=== PATIENT | female | born 1945 | race Caucasian/White ===

== ENCOUNTER → 2019-11-15 | Outpatient (REF) | payer MEDICARE, MEDICAID ==
[2019-11-15 13:15] LABS: HEMATOCRIT 44.6 % (36.0-47.0); HEMOGLOBIN 14.7 g/dl (12.0-15.5); MEAN CORPUSCULAR HEMOGLOBIN 31.4 pg (27.0-33.0); MEAN CORPUSCULAR VOLUME 95.3 fl (80.0-96.0); PLATELET COUNT, AUTOMATED 321 10^3/uL (150-450); RED BLOOD COUNT 4.68 10^6/uL (4.00-5.40); WHITE BLOOD COUNT 8.8 10^3/uL (4.0-10.0)
[2019-11-15 13:37] LABS: ALBUMIN 3.9 GM/DL (3.2-5.2); ALT/SGPT 22 U/L (12-78); BILIRUBIN,TOTAL 0.5 MG/DL (0.2-1.0); BLOOD UREA NITROGEN 13 MG/DL (7-18); CALCIUM LEVEL 9.1 MG/DL (8.8-10.2); CARBON DIOXIDE LEVEL 30 MEQ/L (21-32); CHLORIDE LEVEL 95 MEQ/L (98-107); CHOLESTEROL LEVEL 182 MG/DL (<200); CHOLESTEROL RISK RATIO 3.084 (<5); CREATININE FOR GFR 0.75 MG/DL (0.55-1.30); GLOMERULAR FILTRATION RATE > 60.0 (>39); GLUCOSE, FASTING 99 MG/DL (70-100); HDL CHOLESTEROL 59 MG/DL (>40); LDL CHOLESTEROL 102 MG/DL (<100); NON-HDL-C 123 MG/DL; POTASSIUM SERUM 4.4 MEQ/L (3.5-5.1); SODIUM LEVEL 130 MEQ/L (136-145); TOTAL PROTEIN 7.7 GM/DL (6.4-8.2); TRIGLYCERIDES LEVEL 105 MG/DL (<150)
== END ==
LOC: M LABDRWAD 12:47
PROVIDERS: ATTEND Family Medicine
DX: I10 Essential (primary) hypertension (principal)

== ENCOUNTER → 2021-01-08 | Outpatient (REF) | payer MEDICARE, MEDICAID ==
[2021-01-08 12:40] LABS: HEMATOCRIT 44.1 % (36.0-47.0); HEMOGLOBIN 14.4 g/dl (12.0-15.5); MEAN CORPUSCULAR HEMOGLOBIN 30.8 pg (27.0-33.0); MEAN CORPUSCULAR HGB CONC 32.7 g/dl (32.0-36.5); MEAN CORPUSCULAR VOLUME 94.4 fl (80.0-96.0); PLATELET COUNT, AUTOMATED 318 10^3/uL (150-450); RED BLOOD COUNT 4.67 10^6/uL (4.00-5.40); WHITE BLOOD COUNT 9.6 10^3/uL (4.0-10.0)
[2021-01-08 19:06] LABS: ALT/SGPT 17 U/L (12-78); BILIRUBIN,TOTAL 0.5 MG/DL (0.2-1.0); BLOOD UREA NITROGEN 14 MG/DL (7-18); CALCIUM LEVEL 9.4 MG/DL (8.8-10.2); CARBON DIOXIDE LEVEL 27 MEQ/L (21-32); CHLORIDE LEVEL 97 MEQ/L (98-107); CHOLESTEROL LEVEL 168 MG/DL (<200); CREATININE FOR GFR 0.79 MG/DL (0.55-1.30); FERRITIN 176 NG/ML (8-252); GLOMERULAR FILTRATION RATE > 60.0 (>39); GLUCOSE, FASTING 79 MG/DL (70-100); HDL CHOLESTEROL 56 MG/DL (>40); IRON (FE) 71 UG/DL (50-170); LDL CHOLESTEROL 82 MG/DL (<100); NON-HDL-C 112 MG/DL; PERCENT SATURATION 23.5 % (13.2-45.0); POTASSIUM SERUM 4.8 MEQ/L (3.5-5.1); SODIUM LEVEL 132 MEQ/L (136-145); TOTAL IRON BINDING CAPACITY 302 UG/DL (250-450); TOTAL PROTEIN 7.5 GM/DL (6.4-8.2); TRIGLYCERIDES LEVEL 149 MG/DL (<150)
== END ==
LOC: M LABDRWAD 12:10
PROVIDERS: ATTEND Family Medicine
DX: D64.9 Anemia, unspecified (principal); I10 Essential (primary) hypertension

== ENCOUNTER → 2022-01-14 | Outpatient (CLI) | payer MEDICARE, MEDICAID ==
[2022-01-14 12:43] LABS: HEMATOCRIT 44.3 % (36.0-47.0); HEMOGLOBIN 14.6 g/dl (12.0-15.5); MEAN CORPUSCULAR HEMOGLOBIN 31.2 pg (27.0-33.0); MEAN CORPUSCULAR VOLUME 94.7 fl (80.0-96.0); PLATELET COUNT, AUTOMATED 304 10^3/uL (150-450); RED BLOOD COUNT 4.68 10^6/uL (4.00-5.40); WHITE BLOOD COUNT 8.2 10^3/uL (4.0-10.0)
[2022-01-14 13:14] LABS: ALBUMIN 3.9 GM/DL (3.2-5.2); ALT/SGPT 23 U/L (12-78); BILIRUBIN,TOTAL 0.5 MG/DL (0.2-1.0); BLOOD UREA NITROGEN 14 MG/DL (7-18); CALCIUM LEVEL 9.1 MG/DL (8.8-10.2); CARBON DIOXIDE LEVEL 29 MEQ/L (21-32); CHLORIDE LEVEL 97 MEQ/L (98-107); CHOLESTEROL LEVEL 170 MG/DL (<200); CHOLESTEROL RISK RATIO 2.656 (<5); CREATININE FOR GFR 0.81 MG/DL (0.55-1.30); GLOMERULAR FILTRATION RATE > 60.0 (>39); GLUCOSE, FASTING 89 MG/DL (70-100); HDL CHOLESTEROL 64 MG/DL (>40); LDL CHOLESTEROL 83 MG/DL (<100); NON-HDL-C 106 MG/DL; POTASSIUM SERUM 4.7 MEQ/L (3.5-5.1); SODIUM LEVEL 130 MEQ/L (136-145); TOTAL PROTEIN 7.4 GM/DL (6.4-8.2); TRIGLYCERIDES LEVEL 116 MG/DL (<150)
== END ==
LOC: M ADAMS 09:25
PROVIDERS: ATTEND Family Medicine
DX: I10 Essential (primary) hypertension (principal)

== ENCOUNTER → 2023-05-10 | Outpatient (CLI) | payer MEDICARE, MEDICAID | LOC: M WUC 09:07 | PROVIDERS: ATTEND Family Medicine | DX: M54.50 Low back pain, unspecified (principal) ==

== ENCOUNTER → 2023-07-24 | Outpatient (CLI) | payer MEDICARE, MEDICAID | LOC: M RAD 13:10 | PROVIDERS: ATTEND Orthopaedic Surgery | DX: M54.59 Other low back pain (principal) ==

== ENCOUNTER → 2023-09-01 | Outpatient (REF) | payer MEDICARE, MEDICAID ==
[2023-09-01 13:36] LABS: BASO # 0.1 10^3/uL (0.0-0.2); BASO % 0.6 % (0.0-1.0); EOS # 0.2 10^3/uL (0.0-0.5); EOS % 2.6 % (0.0-3.0); HEMATOCRIT 40.9 % (36.0-47.0); HEMOGLOBIN 13.4 g/dl (12.0-15.5); LYMPH # 1.8 10^3/uL (1.5-5.0); LYMPH % 21.4 % (24.0-44.0); MEAN CORPUSCULAR HEMOGLOBIN 31.9 pg (27.0-33.0); MEAN CORPUSCULAR HGB CONC 32.8 g/dl (32.0-36.5); MEAN CORPUSCULAR VOLUME 97.4 fl (80.0-96.0); MONO # 0.8 10^3/uL (0.0-0.8); MONO % 9.2 % (2.0-8.0); NEUTROPHILS # 5.5 10^3/uL (1.5-8.5); NEUTROPHILS % 65.8 % (36.0-66.0); PLATELET COUNT, AUTOMATED 316 10^3/uL (150-450); WHITE BLOOD COUNT 8.4 10^3/uL (4.0-10.0)
[2023-09-01 14:04] LABS: ALBUMIN 3.6 G/DL (3.2-5.2); ALKALINE PHOSPHATASE 59 U/L (46-116); ALT/SGPT 24 U/L (7.0-40); AST/SGOT 21 U/L (<34); BILIRUBIN,TOTAL 0.4 MG/DL (0.3-1.2); BLOOD UREA NITROGEN 19 MG/DL (9-23); CALCIUM LEVEL 8.8 MG/DL (8.3-10.6); CARBON DIOXIDE LEVEL 29 MMOL/L (20-31); CHLORIDE LEVEL 97 MMOL/L (98-107); CHOLESTEROL LEVEL 158 MG/DL (<200); CHOLESTEROL RISK RATIO 2.84 (<5); CREATININE FOR GFR 0.71 MG/DL (0.55-1.30); GLOMERULAR FILTRATION RATE > 60.0 (>39); GLUCOSE, FASTING 85 MG/DL (74-106); HDL CHOLESTEROL 55.5 MG/DL (>40); LDL CHOLESTEROL 73.9 MG/DL (<100); NON-HDL-C 102.5 MG/DL; POTASSIUM SERUM 4.5 MMOL/L (3.5-5.1); SODIUM LEVEL 131 MMOL/L (136-145); TOTAL PROTEIN 6.8 G/DL (5.7-8.2); TRIGLYCERIDES LEVEL 143 MG/DL (<150)
== END ==
LOC: M LABDRWAD 12:48
PROVIDERS: ATTEND Family Medicine
DX: I10 Essential (primary) hypertension (principal)

== ENCOUNTER → 2024-08-17 | Outpatient (REF) | payer MEDICARE, MEDICAID ==
[2024-08-17 14:12] LABS: BASO # 0.1 10^3/uL (0.0-0.2); BASO % 0.9 % (0.0-1.0); EOS # 0.2 10^3/uL (0.0-0.5); HEMATOCRIT 42.1 % (36.0-47.0); HEMOGLOBIN 13.9 g/dl (12.0-15.5); LYMPH # 1.8 10^3/uL (1.5-5.0); LYMPH % 21.9 % (24.0-44.0); MEAN CORPUSCULAR HEMOGLOBIN 32.1 pg (27.0-33.0); MEAN CORPUSCULAR VOLUME 97.2 fl (80.0-96.0); MONO # 0.8 10^3/uL (0.0-0.8); MONO % 10.3 % (2.0-8.0); NEUTROPHILS # 5.2 10^3/uL (1.5-8.5); NEUTROPHILS % 64.7 % (36.0-66.0); PLATELET COUNT, AUTOMATED 297 10^3/uL (150-450); RED BLOOD COUNT 4.33 10^6/uL (4.00-5.40); WHITE BLOOD COUNT 8.1 10^3/uL (4.0-10.0)
[2024-08-17 14:15] LABS: ALBUMIN 3.7 G/DL (3.2-5.2); ALKALINE PHOSPHATASE 63 U/L (35-104); ALT/SGPT 17 U/L (7.0-40); AST/SGOT 19 U/L (<34); BILIRUBIN,TOTAL 0.5 MG/DL (0.3-1.2); BLOOD UREA NITROGEN 17 MG/DL (9-23); CALCIUM LEVEL 9.7 MG/DL (8.3-10.6); CARBON DIOXIDE LEVEL 31 MMOL/L (20-31); CHLORIDE LEVEL 94 MMOL/L (98-107); CHOLESTEROL LEVEL 213 MG/DL (<200); CHOLESTEROL RISK RATIO 3.39 (<5); CREATININE FOR GFR 0.74 MG/DL (0.55-1.30); GLOMERULAR FILTRATION RATE > 60.0 (>39); GLUCOSE, FASTING 83 MG/DL (74-106); HDL CHOLESTEROL 62.8 MG/DL (>40); LDL CHOLESTEROL 114.6 MG/DL (<100); NON-HDL-C 150.2 MG/DL; POTASSIUM SERUM 5.1 MMOL/L (3.5-5.1); SODIUM LEVEL 130 MMOL/L (136-145); TOTAL PROTEIN 7.5 G/DL (5.7-8.2); TRIGLYCERIDES LEVEL 178 MG/DL (<150)
== END ==
LOC: M LABDRWAD 13:22
PROVIDERS: ATTEND Family Medicine
DX: I10 Essential (primary) hypertension (principal)

== ENCOUNTER 2025-04-25 13:44 | Emergency (ER) | payer OTHER, MEDICAID ==
[2025-04-25 13:58] VITALS: BP 103/60; TEMP 95.1; O2SAT 93
[2025-04-25] MEDS ORDERED: NITROGLYCERIN 0.4 MG SUBL TABLET As Ordered ONE (14:04)
[2025-04-25 14:06] VITALS: BP 144/68
[2025-04-25] MEDS: NITROGLYCERIN 0.4 MG SUBL TABLET SL STA (14:06)
[2025-04-25 14:20] LABS: BASO # 0.1 10^3/uL (0.0-0.2); BASO % 0.5 % (0.0-1.0); EOS # 0.2 10^3/uL (0.0-0.5); EOS % 1.8 % (0.0-3.0); LYMPH # 2.3 10^3/uL (1.5-5.0); LYMPH % 17.7 % (24.0-44.0); MONO # 1.3 10^3/uL (0.0-0.8); MONO % 9.8 % (2.0-8.0); NEUTROPHILS # 9.1 10^3/uL (1.5-8.5); NEUTROPHILS % 69.7 % (36.0-66.0); PLATELET COUNT, AUTOMATED 348 10^3/uL (150-450)
[2025-04-25] MEDS: TENECTEPLASE 50 MG/10 ML VIAL IV STA (14:25)
[2025-04-25] MEDS: NS (Normal Saline) 0.9% 1,000 ML IV ONE (14:26)
[2025-04-25] MEDS: CLOPIDOGREL 75 MG TAB PO ONE (14:30)
[2025-04-25] MEDS: HEPARIN SOD 5000 UNITS/ML 1 ML VIAL/SYRINGE IV ONE (14:32)
[2025-04-25 14:38] LABS: INR 0.86
[2025-04-25 14:41] LABS: ALT/SGPT 21.0 U/L (7.0-40); AST/SGOT 51.0 U/L (<34); CALCIUM LEVEL 8.8 MG/DL (8.3-10.6); CARBON DIOXIDE LEVEL 26.0 MMOL/L (20-31); CHLORIDE LEVEL 94.0 MMOL/L (98-107); CK-MB VALUE MASS 24.8 NG/ML (<3.6); CREATININE FOR GFR 0.82 MG/DL (0.55-1.30); GLOMERULAR FILTRATION RATE 72.3 (>32); POTASSIUM SERUM 4.6 MMOL/L (3.5-5.1); SODIUM LEVEL 130.0 MMOL/L (136-145)
[2025-04-25] MEDS: HEPARIN DRIP 25,000 UNITS in IV 1 EA IV SCH (14:42)
[2025-04-25 14:43] LABS: FREE T4 0.74 NG/DL (0.89-1.76)
[2025-04-25 14:51] LABS: CPK CREATINE PHOSPHOKINASE 254.0 U/L (34-145); MB/CK RELATIVE INDEX 9.76 (< OR =4)
== END 2025-04-25 15:36 | disposition short-term general hospital (02) ==
LOC: M ED 13:44 → EDBD 13:44 → M ED 15:36
DX: I21.3 ST elevation (STEMI) myocardial infarction of unspecified site (principal); I48.91 Unspecified atrial fibrillation; E78.5 Hyperlipidemia, unspecified; F17.210 Nicotine dependence, cigarettes, uncomplicated
CPT/HCPCS: 71045; 80047; 80048; 80076; 82550; 82553; 84439; 84443; 84484; 85025; 85610; 85730; 93005; 93041; 94760; 96374; 96375; 99291; 99292; J3101

== ENCOUNTER → 2025-05-29 | Outpatient (CLI) | payer OTHER, MEDICAID ==
[2025-05-29 18:38] LABS: CALCIUM LEVEL 8.9 MG/DL (8.3-10.6); CARBON DIOXIDE LEVEL 29.0 MMOL/L (20-31); CHLORIDE LEVEL 101.0 MMOL/L (98-107); CREATININE FOR GFR 1.2 MG/DL (0.55-1.30); GLOMERULAR FILTRATION RATE 45.8 (>32); POTASSIUM SERUM 4.0 MMOL/L (3.5-5.1); SODIUM LEVEL 142.0 MMOL/L (136-145)
[2025-05-29 18:44] LABS: BASO # 0.0 10^3/uL (0.0-0.2); BASO % 0.4 % (0.0-1.0); EOS # 0.1 10^3/uL (0.0-0.5); EOS % 1.5 % (0.0-3.0); LYMPH # 0.8 10^3/uL (1.5-5.0); LYMPH % 9.9 % (24.0-44.0); MONO # 0.9 10^3/uL (0.0-0.8); MONO % 10.9 % (2.0-8.0); NEUTROPHILS # 6.6 10^3/uL (1.5-8.5); NEUTROPHILS % 76.8 % (36.0-66.0); PLATELET COUNT, AUTOMATED 233 10^3/uL (150-450)
== END ==
LOC: M LABDRWAD 11:12
PROVIDERS: ATTEND Nurse Practitioner
DX: I21.3 ST elevation (STEMI) myocardial infarction of unspecified site (principal)

== ENCOUNTER 2025-06-09 15:43 | Emergency (ER) | payer OTHER, MEDICAID ==
[~2025-06-09] VITALS: Ht 157.5 cm; Wt 62.3 kg
[2025-06-09 16:31] LABS: BASO # 0.1 10^3/uL (0.0-0.2); BASO % 0.8 % (0.0-1.0); EOS # 0.2 10^3/uL (0.0-0.5); EOS % 2.8 % (0.0-3.0); LYMPH # 1.2 10^3/uL (1.5-5.0); LYMPH % 20.1 % (24.0-44.0); MONO # 0.8 10^3/uL (0.0-0.8); MONO % 12.1 % (2.0-8.0); NEUTROPHILS # 4.0 10^3/uL (1.5-8.5); NEUTROPHILS % 63.9 % (36.0-66.0); PLATELET COUNT, AUTOMATED 322 10^3/uL (150-450)
[2025-06-09] MEDS ORDERED: METO1TAB32 PO (17:20)
[2025-06-09] MEDS ORDERED: FURO40TA2 PO (17:20)
[2025-06-09] MEDS ORDERED: CLOP75TA2 PO (17:20)
[2025-06-09] MEDS ORDERED: MIDO2.5T3 PO (17:20)
[2025-06-09] MEDS ORDERED: SYMB80INH INH (17:20)
[2025-06-09] MEDS ORDERED: FERR325T19 PO (17:20)
[2025-06-09] MEDS ORDERED: SPIR-10 PO (17:20)
[2025-06-09] MEDS ORDERED: DOCU100C17 PO (17:20)
[2025-06-09] MEDS ORDERED: ASPI81TA26 PO (17:20)
[2025-06-09] MEDS ORDERED: ATOR80TA59 PO (17:20)
[2025-06-09] MEDS ORDERED: HOME MED LIST COMPLETE! XX SCH (17:25)
[2025-06-09 18:12] LABS: ALT/SGPT 21.0 U/L (7.0-40); AST/SGOT 28.0 U/L (<34); CALCIUM LEVEL 8.6 MG/DL (8.3-10.6); CARBON DIOXIDE LEVEL 25.0 MMOL/L (20-31); CHLORIDE LEVEL 99.0 MMOL/L (98-107); CREATININE FOR GFR 1.39 MG/DL (0.55-1.30); FREE T4 0.37 NG/DL (0.89-1.76); GLOMERULAR FILTRATION RATE 38.4 (>32); MAGNESIUM LEVEL 2.0 MG/DL (1.8-2.4); POTASSIUM SERUM 4.3 MMOL/L (3.5-5.1); SODIUM LEVEL 135.0 MMOL/L (136-145)
[2025-06-09 20:00] VITALS: BP 108/65; TEMP 97.3; O2SAT 98
== END 2025-06-09 20:30 | disposition short-term general hospital (02) ==
LOC: M ED 15:43
DX: T88.8XXA Other specified complications of surgical and medical care, not elsewhere classified, initial encounter (principal); J91.8 Pleural effusion in other conditions classified elsewhere; I45.81 Long QT syndrome; I48.91 Unspecified atrial fibrillation; I25.119 Atherosclerotic heart disease of native coronary artery with unspecified angina pectoris; J44.9 Chronic obstructive pulmonary disease, unspecified; I10 Essential (primary) hypertension; E78.5 Hyperlipidemia, unspecified; Z87.891 Personal history of nicotine dependence; Z79.1 Long term (current) use of non-steroidal anti-inflammatories (NSAID); Z79.899 Other long term (current) drug therapy

== ENCOUNTER → 2025-07-20 | Outpatient (CLI) | payer OTHER, MEDICAID ==
[~2025-07-20] MED LIST: ASPI81TA26 PO; ATOR80TA59 PO; CLOP75TA2 PO; DOCU100C17 PO; FERR325T19 PO; FURO40TA2 PO; METO1TAB32 PO; MIDO2.5T3 PO; SPIR-10 PO; SYMB80INH INH
== END ==
LOC: M WHC 13:37
PROVIDERS: ATTEND Family Medicine
DX: N28.1 Cyst of kidney, acquired (principal); E04.1 Nontoxic single thyroid nodule

== ENCOUNTER → 2025-07-25 | Outpatient (REF) | payer OTHER, MEDICAID ==
[2025-07-25 14:18] LABS: PLATELET COUNT, AUTOMATED 340 10^3/uL (150-450)
[2025-07-25 14:28] LABS: ALT/SGPT 15.0 U/L (7.0-40); AST/SGOT 23.0 U/L (<34); CALCIUM LEVEL 8.9 MG/DL (8.3-10.6); CARBON DIOXIDE LEVEL 28.0 MMOL/L (20-31); CHLORIDE LEVEL 99.0 MMOL/L (98-107); CREATININE FOR GFR 1.2 MG/DL (0.55-1.30); GLOMERULAR FILTRATION RATE 45.8 (>32); POTASSIUM SERUM 4.7 MMOL/L (3.5-5.1); SODIUM LEVEL 138.0 MMOL/L (136-145)
== END ==
LOC: M LABDRWAD 13:11 → M LAB REF 13:11
PROVIDERS: ATTEND Internal Medicine Cardiovascular Disease
DX: I48.19 Other persistent atrial fibrillation (principal); E07.9 Disorder of thyroid, unspecified; I25.810 Atherosclerosis of coronary artery bypass graft(s) without angina pectoris

== ENCOUNTER → 2025-07-25 | Outpatient (REF) | payer OTHER, MEDICAID ==
[2025-07-25 14:30] LABS: FREE T4 0.86 NG/DL (0.89-1.76)
== END ==
LOC: M LABDRWAD 13:13
PROVIDERS: ATTEND Family Medicine
DX: E07.9 Disorder of thyroid, unspecified (principal); I48.19 Other persistent atrial fibrillation; I25.810 Atherosclerosis of coronary artery bypass graft(s) without angina pectoris

== ENCOUNTER → 2025-09-26 | Outpatient (CLI) | payer OTHER, MEDICAID ==
[2025-09-26 14:29] LABS: FREE T4 1.12 NG/DL (0.89-1.76)
== END ==
LOC: M ADAMS 11:12
PROVIDERS: ATTEND Family Medicine
DX: J44.9 Chronic obstructive pulmonary disease, unspecified (principal); E03.9 Hypothyroidism, unspecified; J90 Pleural effusion, not elsewhere classified